=== PATIENT | female | born 2000 | race Asian ===

== ENCOUNTER 2025-04-16 13:23 | Outpatient (AMB) | payer MEDICAID, SELFPAY ==
[2025-04-16 13:43] VITALS: BP 127/89; PULSE 67; RESP 17; TEMP 36.2; O2SAT 98; BMI 27.5
--- NOTE | 2025-04-16 13:43 | AMB.OBINITIA ---
Vital Signs 04/16/25 13:43 Height 1.63 m Height Method Stated Weight 72.802 kg Weight Measurement Method Standing Scale BMI 27.5 BP 127/89 H Blood Pressure Source Automatic Cuff Blood Pressure Location Left Upper Arm Position Sitting Respiration 17 Pulse 67 Pulse Source Monitor Temp 97.2 F Temp Source Oral Pulse Oximetry (%) 98 Oxygen Delivery Method Room Air Allergies/Home Meds Allergies & Medications Allergies No Known Allergies Allergy (Verified 04/16/25 13:44) Medication Reconciliation No Known Home Medications 04/16/25 [History Confirmed 04/16/25] Intake Visit Data Collection New Patient or Established: Established Patient (seen at [facility] [place] Reason for Visit:: OBC Seen by Clinical Staff ONLY (RN/MA): No Cable Hooker Required: No Do You Feel Safe at Home: Yes Authorities Contacted: N/A PCP or OBGYN visit in last 3 months: No Hx Now: Yes Are you currently on any form of Control: No Pain Present Currently: No Pain Scale Used: Stinson-Williamson/Numerical Pain scale:: 0 Smoking Status Smoking Status: Never smoker Questionnaires Covid-19 Vaccine Questionnaire Has patient been vacinated for Covid-19 Have you been vacinated for Covid-19: Yes PHQ-9 PHQ-2 Over the last 2 weeks, how often have you been bothered by any of the following problems? 1. Little interest or pleasure in doing things: not at all 2. Feeling down, depressed, or hopeless: not at all Total score: 0 PHQ-9 3. Trouble falling or staying asleep, or sleeping too much: Not at all 4. Feeling tired or having little energy: Not at all 5. Poor appetite or overeating: Not at all 6. Feeling bad about yourself - or that you are a failure or have let yourself or your family down: Not at all 7. Trouble concentrating on things, such as reading the newspaper or watching television: Not at all 8. Moving or speaking so slowly that other people could have noticed? - Or the opposite - being so fidgety or restless that you have been moving around a lot more than usual: not at all 9. Thoughts that you would be better off or of hurting yourself in some way: Not at all Total score: 0 If you checked off any problems, how difficult have these problems made it for you to do your work, take care of things at home, or get along with other people?: not difficult at all Source: Developed by Drs. Blake Hartley, Kerry Haney, Solis Cosby and colleagues, with an educational pedro from [employer]. Depression screen completed yes Social History Living Situation History Marital Status: Lives With: Family Housing: Apartment Tobacco History Smoking Status: Never smoker Second Hand Smoke Exposure: No Alcohol History Alcohol Intake: Never Domestic Abuse History Do You Feel Safe at Home: Yes History of Present Illness HPI Narrative 25 yo for OBI. LMP 02/15/25. EDC 11/25/25. happy with + preg test. partner here with patient. no c/o N/V. c/o spotting light last week. no bleeding now. Denies existing PMH. denies social habit,no surgery. 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 Medical History Past Medical History: No Hx Neurological Disorders, No Hx Cardiac Disorders, No Hx Cancer, No Hx Blood Disorders, No Hx Gastrointestinal Disorders, No Hx Renal Disease, No Hx Diabetes Mellitus Type 1 and No Hx Diabetes Mellitus Type 2 OB Initial Visit Menstrual History Menstrual reliability: definite Flow: normal Menstrual regularity: regular Monthly: Yes Age at menarche: 10 On control pills at conception: No OB History : 2 Para: 1 Hx # Pregnancies: 0 Hx Total # of Abortions (Spontaneous & Elective): 0 # of Living Children: 1 Delivery History 1st : date: 03/07/19 sex: male Gestational age at delivery (weeks): 38 Delivery type: vaginal weight (lbs): 2721.554 g History of depression before or after : No Infection History & Risk Evaluation History of STDs: none HIV risk evaluation: low risk Hepatitis B risk evaluation: low risk Patient or partner has history of Genital Herpes: No Varicella/chicken pox status: immunized Genetic Screening & History Genetic Screening/Teratology Counseling - Includes patient, baby's father, or anyone in either family with: 1. Patient's age 35 years or older as of estimated date of delivery: No 2. Thalassemia (Albanian, Mohawk, Mediterranean, or Background); MCV less than 80: No 3. Neural Tube Defect (Meningomyelocele, Spina Bifida, or Anencephaly): No 4. Congenital Heart Defect: No 5. Down Syndrome: No 6. Jr-Sachs (Ashkenazi Orthodoxy, Cajun, Tunisian Micronesian): No 7. Gaby Disease (Ashkenazi Orthodoxy): No 8. Familial Dysautonomia (Ashkenazi Orthodoxy): No 9. Sickle Cell Disease or Trait (): No 10. Hemophilia or other blood disorders: No 11. Muscular Dystrophy: No 12. Cystic Fibrosis: No 13. Holland's Chorea: No 14. Mental Retardation/Autism: No 15. Other inherited genetic or chromosomal disorder: No 16. Maternal Metabolic Disorder (EG,TYPE 1 Diabetes, PKU): No 17. Patient or baby's father had a child with defects not listed above: No 18. Recurrent loss or a stillbirth: No 19. Medications (including supplements, vitamins, herbs or otc drugs)/illicit/recreational drugs/alcohol since last menstrual period: No 20. Any other: No Infection History 1. Live with someone with TB or exposed to TB: No 2. Rash or viral illness since last menstrual period: No 3. Hepatitis B,C: No Other (see comments) Source: [employer] Review of Systems Review of Systems Systems Reviewed: All systems reviewed, normal except as documented Exam General Limitations: no limitations General Appearance: alert, in no apparent distress, comfortable, cooperative, healthy appearing, well developed and well groomed Head Head exam: atraumatic, normocephalic and normal inspection Chest Chest inspection: Present normal inspection and symmetric chest wall rise Resp Respiratory exam: Present normal lung sounds bilaterally Card Cardiovascular exam: Present regular rate, normal rhythm and normal heart sounds Abdominal Abdominal exam: Present soft and normal bowel sounds Psych Psychiatric exam: Present normal affect and normal mood Office Procedures OB Clinic LOC & Office Proc's Nursing/Assessment Patient Status: Established Patient OB Clinic Nursing Assessment: Medication Reconciliation, Update PMH in EMR and Vital Signs OB Clinic Coordination of Care: Complex Care and Chronic Disease 1-5, Education Complex Pt/Fam, Consent,records obtained, informed consent, Lab and Imaging orders and Staff clarify orders Special Needs: Heart tones Established Patient Charge Established Patient Point Assignment: 135 Established Patient Point Charge: EP Level 4 (120-155) Assessment & Plan Diagnosis / Problem List (1) Encounter for supervision of normal in multigravida in first trimester: Status: Acute Plan discuss ER precaution and SAB precaution, continue PNV, increase fluids. ob sono for viability. OB panel and HCG today, rest. rtc 4 week obc and NIPT
== END 2025-04-16 14:20 | disposition home or self-care (01) ==
LOC: HODSOBC 13:23
PROVIDERS: Supervising Provider Obstetrics & Gynecology; Visit Provider Advanced Practice Midwife
DX: Z34.81 Encounter for supervision of other normal pregnancy, first trimester (principal); Z3A.00 Weeks of gestation of pregnancy not specified
CPT/HCPCS: 99214; G0463

== ENCOUNTER 2025-05-08 15:19 | Outpatient (AMB) | payer MEDICAID, SELFPAY ==
[2025-05-08 15:35] VITALS: BP 106/64; PULSE 79; RESP 18; TEMP 36.2; O2SAT 98; BMI 27.5
--- NOTE | 2025-05-08 15:35 | OBCLNT_ITS ---
Vital Signs 05/08/25 15:35 Height 1.63 m Height Method Stated Weight 73.085 kg Weight Measurement Method Standing Scale BMI 27.5 BP 106/64 Blood Pressure Source Automatic Cuff Blood Pressure Location Left Upper Arm Position Sitting Respiration 18 Pulse 79 Pulse Source Monitor Temp 97.2 F Temp Source Oral Pulse Oximetry (%) 98 Oxygen Delivery Method Room Air Allergies/Home Meds Allergies & Medications Allergies No Known Allergies Allergy (Verified 05/08/25 15:37) Medication Reconciliation No Known Home Medications 04/16/25 [History Confirmed 05/08/25] Intake Visit Data Collection New Patient or Established: Established Patient (seen at [facility] within 3 years) Reason for Visit:: OBC Seen by Clinical Staff ONLY (RN/MA): No Seo Coordinator Required: No Do You Feel Safe at Home: Yes Authorities Contacted: N/A PCP or OBGYN visit in last 3 months: Yes Date of Last PCP or OBGYN visit: 04/16/25 Hx Now: No Pain Present Currently: No Pain Scale Used: Stinson-Williamson/Numerical Pain scale:: 0 Smoking Status Smoking Status: Never smoker Questionnaires Covid-19 Vaccine Questionnaire Has patient been vacinated for Covid-19 Have you been vacinated for Covid-19: Yes PHQ-9 PHQ-2 Over the last 2 weeks, how often have you been bothered by any of the following problems? 1. Little interest or pleasure in doing things: not at all 2. Feeling down, depressed, or hopeless: not at all Total score: 0 PHQ-9 3. Trouble falling or staying asleep, or sleeping too much: Not at all 4. Feeling tired or having little energy: Not at all 5. Poor appetite or overeating: Not at all 6. Feeling bad about yourself - or that you are a failure or have let yourself or your family down: Not at all 7. Trouble concentrating on things, such as reading the newspaper or watching television: Not at all 8. Moving or speaking so slowly that other people could have noticed? - Or the opposite - being so fidgety or restless that you have been moving around a lot more than usual: not at all 9. Thoughts that you would be better off or of hurting yourself in some way: Not at all Total score: 0 If you checked off any problems, how difficult have these problems made it for you to do your work, take care of things at home, or get along with other people?: not difficult at all Source: Developed by Drs. Blake Hartley, Kerry Haney, Solis Cosby and colleagues, with an educational pedro from [employer]. 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 no 1st trimester complaints/discomfort. happy. spotted last week, light. denies bleeding now. OB panel today, continue PNV, schedule ob sono for viability, HCG today. discuss sab precaution ad ER precaution, hydrate. RTC 4 week 05/08/25 -?-?-?-?-?-?-?-?-?-?-?-?- 11w 5d 73.085 kg 106/64 absent unknown 12 145 absent No ob complaints. 2022:LEEP for abnormal pap. patient need pap pp, denioes sab complaints, no n/v discuss sab precaution, NIPT and carrier today, sched m anatomy scan. RTC 4 week obc KINZA Calculator Estimated Delivery Date Method Current WG Current Estimate 11/22/25 LMP (Certain) 11w 5d Notes Visit Date: 05/08/25 Last Updated by: Nanette Hernandez CNM 25 yo 2p1. lmp 02/15/25. EDC 11/22/25, O+,abs-, rpr;;nr, rub imm, hbsag-, hiv-,HC-, gc/ct-, /plt:287. [place]- Office Procedures OB Clinic LOC & Office Proc's Nursing/Assessment Patient Status: Established Patient OB Clinic Nursing Assessment: Medication Reconciliation, Update PMH in EMR and Vital Signs OB Clinic Coordination of Care: Education Complex Pt/Fam, Consent,records obtained, informed consent, Lab and Imaging orders, Results/Orders obtained and Staff clarify orders Special Needs: Heart tones Established Patient Charge Established Patient Point Assignment: 115 Established Patient Point Charge: EP Level 3 (80-115) Assessment & Plan Diagnosis / Problem List (1) Encounter for supervision of normal in multigravida in first trimester: Status: Acute Plan NIPT,carrier today, discuss sab precaution. sched mfm appointment for anatomy scan. rtc 4 week ob Additional Plan Follow Up: 4 Weeks (obc)
== END 2025-05-08 16:13 | disposition home or self-care (01) ==
LOC: HODSOBC 15:19
PROVIDERS: Supervising Provider Advanced Practice Midwife; Visit Provider Advanced Practice Midwife
DX: Z34.81 Encounter for supervision of other normal pregnancy, first trimester (principal); Z3A.11 11 weeks gestation of pregnancy
CPT/HCPCS: 99213; G0463

== ENCOUNTER 2025-07-24 10:32 | Outpatient (AMB) | payer MEDICAID, SELFPAY ==
[2025-07-24 10:38] VITALS: BP 107/62; PULSE 66; RESP 14; TEMP 36.6; O2SAT 98; BMI 27.5
--- NOTE | 2025-07-24 10:38 | OBCLNT_ITS ---
Vital Signs 07/24/25 10:38 Height 1.63 m Height Method Stated Weight 73.142 kg Weight Measurement Method Standing Scale BMI 27.5 BP 107/62 Blood Pressure Source Automatic Cuff Blood Pressure Location Left Upper Arm Position Sitting Respiration 14 Pulse 66 Pulse Source Monitor Temp 97.8 F Temp Source Oral Pulse Oximetry (%) 98 Oxygen Delivery Method Room Air Allergies/Home Meds Allergies & Medications Allergies No Known Allergies Allergy (Verified 07/24/25 10:39) Medication Reconciliation No Known Home Medications 04/16/25 [History Confirmed 07/24/25] Intake Visit Data Collection New Patient or Established: Established Patient (seen at [facility] within 3 years) Reason for Visit:: CARE Seen by Clinical Staff ONLY (RN/MA): No 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 1. Little interest or pleasure in doing things: not at all 2. Feeling down, depressed, or hopeless: not at all Total score: 0 PHQ-9 3. Trouble falling or staying asleep, or sleeping too much: Not at all 4. Feeling tired or having little energy: Not at all 5. Poor appetite or overeating: Not at all 6. Feeling bad about yourself - or that you are a failure or have let yourself or your family down: Not at all 7. Trouble concentrating on things, such as reading the newspaper or watching television: Not at all 8. Moving or speaking so slowly that other people could have noticed? - Or the opposite - being so fidgety or restless that you have been moving around a lot more than usual: not at all 9. Thoughts that you would be better off or of hurting yourself in some way: Not at all Total score: 0 Source: Developed by Kerry StevensonW. Lyndon, Solis Cosby and colleagues, with an educational pedro from [employer]. 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 no 1st trimester complaints/discomfort. happy. spotted last week, light. denies bleeding now. OB panel today, continue PNV, schedule ob sono for viability, HCG today. discuss sab precaution ad ER precaution, hydrate. RTC 4 week 05/08/25 -?-?-?-?-?-?-?-?-?-?-?-?- 9w 5d 73.085 kg 106/64 absent unknown 12 145 absent No ob complaints. 2022:LEEP for abnormal pap. patient need pap pp, denioes sab complaints, no n/v discuss sab precaution, NIPT and carrier today, sched mfm anatomy scan. RTC 4 week obc 07/24/25 -?-?-?-?-?-?-?-?-?-?-?-?- 20w 5d 73.142 kg 107/62 absent unknown 20 130 active No complaints of labor. Denies bleeding. Denies leaking. Reports movement. Complains of cramping and low pelvic area at work. 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 Discussed dates. Corrected EDC to December 06, 2025. NIPT today. Patient has follow-up MFM in about 4 to 6 weeks. Return in 4 weeks OB check KINZA Calculator Estimated Delivery Date Method Current WG Current Estimate 12/06/25 Ultrasound #1 20w 5d Other Estimates 11/22/25 LMP (Certain) 22w 5d Notes Visit Date: 07/24/25 Last Updated by: Nanette Hernandez CNM wrong Dates. 1st sono: 07/04/25: IUP: 17w6. EDC: 12/06/25. MOON normal, CEDC: 12/06/25 Visit Date: 05/08/25 Last Updated by: Nanette Hernandez CNM 25 yo 2p1. lmp 02/15/25. EDC 11/22/25, O+,abs-, rpr;;nr, rub imm, hbsag-, hiv-,HC-, gc/ct-, /plt:287. [place]- Office Procedures OB Clinic LOC & Office Proc's Nursing/Assessment Patient Status: Established Patient OB Clinic Nursing Assessment: Medication Reconciliation, Update PMH in EMR and Vital Signs OB Clinic Coordination of Care: Complex Care and Chronic Disease 1-5, Consent,records obtained, informed consent, Education Simp Pt/Fam, 1 Ins Authorization, Lab and Imaging orders, Results/Orders obtained and Staff clarify orders Special Needs: Heart tones Established Patient Charge Established Patient Point Assignment: 150 Established Patient Point Charge: EP Level 4 (120-155) Assessment & Plan Diagnosis / Problem List (1) Encounter for supervision of high risk in second trimester, antepartum: Status: Acute Plan Discussed dates. Change EDC to December 06, 2025. NIPT today. Discussed SAB precautions. Disability in 4 weeks Additional Plan Follow Up: 4 Weeks (obc)
== END 2025-07-24 10:55 | disposition home or self-care (01) ==
LOC: HODSOBC 10:32
PROVIDERS: Supervising Provider Advanced Practice Midwife; Visit Provider Advanced Practice Midwife
DX: O09.892 Supervision of other high risk pregnancies, second trimester (principal); O26.842 Uterine size-date discrepancy, second trimester; Z3A.20 20 weeks gestation of pregnancy
CPT/HCPCS: 99214; G0463

== ENCOUNTER 2025-08-20 14:39 | Outpatient (AMB) | payer MEDICAID, SELFPAY ==
[2025-08-20 14:47] VITALS: BP 112/69; PULSE 78; RESP 16; TEMP 36.5; O2SAT 98; BMI 28.2
--- NOTE | 2025-08-20 14:47 | OBCLNT_ITS ---
Vital Signs 08/20/25 14:47 Height 1.63 m Height Method Stated Weight 74.899 kg Weight Measurement Method Standing Scale BMI 28.2 BP 112/69 Blood Pressure Source Automatic Cuff Blood Pressure Location Left Upper Arm Position Sitting Respiration 16 Pulse 78 Pulse Source Monitor Temp 97.7 F Temp Source Oral Pulse Oximetry (%) 98 Oxygen Delivery Method Room Air Allergies/Home Meds Allergies & Medications Allergies No Known Allergies Allergy (Verified 08/20/25 14:48) Medication Reconciliation No Known Home Medications 04/16/25 [History Confirmed 08/20/25] Intake Visit Data Collection New Patient or Established: Established Patient (seen at [facility] within 3 years) Reason for Visit:: CARE Seen by Clinical Staff ONLY (RN/MA): No Wheel Lacer And Truer Required: No Do You Feel Safe at Home: Yes Authorities Contacted: N/A PCP or OBGYN visit in last 3 months: Yes Hx Now: Yes Are you currently on any form of Control: No Pain Present Currently: No Pain Scale Used: Stinson-Williamson/Numerical Pain scale:: 0 Smoking Status Smoking Status: Never smoker Questionnaires Covid-19 Vaccine Questionnaire Has patient been vacinated for Covid-19 Have you been vacinated for Covid-19: Yes PHQ-9 PHQ-2 Over the last 2 weeks, how often have you been bothered by any of the following problems? 1. Little interest or pleasure in doing things: not at all 2. Feeling down, depressed, or hopeless: not at all Total score: 0 PHQ-9 3. Trouble falling or staying asleep, or sleeping too much: Not at all 4. Feeling tired or having little energy: Not at all 5. Poor appetite or overeating: Not at all 6. Feeling bad about yourself - or that you are a failure or have let yourself or your family down: Not at all 7. Trouble concentrating on things, such as reading the newspaper or watching television: Not at all 8. Moving or speaking so slowly that other people could have noticed? - Or the opposite - being so fidgety or restless that you have been moving around a lot more than usual: not at all 9. Thoughts that you would be better off or of hurting yourself in some way: Not at all Total score: 0 Source: Developed by Drs. Blake Hartley, Kerry Haney, Solis Cosby and colleagues, with an educational pedro from [employer]. 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 no 1st trimester complaints/discomfort. happy. spotted last week, light. denies bleeding now. OB panel today, continue PNV, schedule ob sono for viability, HCG today. discuss sab precaution ad ER precaution, hydrate. RTC 4 week 05/08/25 -?-?-?-?-?-?-?-?-?-?-?-?- 9w 5d 73.085 kg 106/64 absent unknown 12 145 absent No ob complaints. 2022:LEEP for abnormal pap. patient need pap pp, denioes sab complaints, no n/v discuss sab precaution, NIPT and carrier today, sched mfm anatomy scan. RTC 4 week obc 07/24/25 -?-?-?-?-?-?-?-?-?-?-?-?- 20w 5d 73.142 kg 107/62 absent unknown 20 130 active No complaints of labor. Denies bleeding. Denies leaking. Reports movement. Complains of cramping and low pelvic area at work. 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 Discussed dates. Corrected EDC to December 06, 2025. NIPT today. Patient has follow-up MFM in about 4 to 6 weeks. 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 Difficult to work with her abdomen being so big. Denies leaking, denies bleeding. Patient complains of increased cramps at work. Reports good movement Disability will start August 24. last day worked will be 08/23/25. Third trimester labs. Patient has a follow-up ultrasound in 4 weeks. Discussed labor precautions. Increase fluids. Return in 4 weeks for OB check KINZA Calculator Estimated Delivery Date Method Current WG Current Estimate 12/06/25 Ultrasound #1 24w 4d Other Estimates 11/22/25 LMP (Certain) 26w 4d Notes Visit Date: 08/20/25 Last Updated by: Nanette Hernandez CNM NIPT-/male, SMA/CF- Visit Date: 07/24/25 Last Updated by: Nanette Hernandez CNM wrong Dates. 1st sono: 07/04/25: IUP: 17w6. EDC: 12/06/25. MOON normal, CEDC: 12/06/25 Visit Date: 05/08/25 Last Updated by: Nanette Hernandez CNM 25 yo 2p1. lmp 02/15/25. EDC 11/22/25, O+,abs-, rpr;;nr, rub imm, hbsag-, hiv-,HC-, gc/ct-, /plt:287. [place]- Office Procedures OBC Clinic LOC & Office Proc's Nursing/Assessment Patient Status: Established Patient OB Clinic Nursing Assessment: Medication Reconciliation, Update PMH in EMR and Vital Signs OB Clinic Coordination of Care: Complex Care and Chronic Disease 1-5, Consent,records obtained, informed consent, Education Simp Pt/Fam, Lab and Imaging orders, Results/Orders obtained and Staff clarify orders Special Needs: Heart tones Established Patient Charge Established Patient Point Assignment: 135 Established Patient Point Charge: EP Level 4 (120-155) Assessment & Plan Diagnosis / Problem List (1) Encounter for supervision of high risk in second trimester, antepartum: Status: Acute Plan Disability. Last date of work will be August 23. And disability will start August 24. Third trimester labs ordered. Discussed comfort measures for labor and danger signs and symptoms. Increase fluids. And return in 4 weeks OBC Additional Plan Follow Up: 4 Weeks (obc)
== END 2025-08-20 15:04 | disposition home or self-care (01) ==
LOC: HODSOBC 14:39
PROVIDERS: Supervising Provider Advanced Practice Midwife; Visit Provider Advanced Practice Midwife
DX: O09.92 Supervision of high risk pregnancy, unspecified, second trimester (principal); Z3A.24 24 weeks gestation of pregnancy
CPT/HCPCS: 99214; G0463

== ENCOUNTER 2025-09-17 11:33 | Outpatient (AMB) | payer MEDICAID, SELFPAY ==
[2025-09-17 11:40] VITALS: BP 100/62; PULSE 73; RESP 18; TEMP 36.5; O2SAT 98; BMI 29.2
--- NOTE | 2025-09-17 11:40 | OBCLNT_ITS ---
Vital Signs 09/17/25 11:40 Height 1.63 m Height Method Stated Weight 77.678 kg Weight Measurement Method Standing Scale BMI 29.2 BP 100/62 Blood Pressure Source Automatic Cuff Blood Pressure Location Right Upper Arm Position Sitting Respiration 18 Pulse 73 Pulse Source Monitor Temp 97.7 F Temp Source Temporal Artery Scan Pulse Oximetry (%) 98 Oxygen Delivery Method Room Air Allergies/Home Meds Allergies & Medications Allergies No Known Allergies Allergy (Verified 09/17/25 11:41) Medication Reconciliation No Known Home Medications 04/16/25 [History Confirmed 09/17/25] Intake Visit Data Collection New Patient or Established: Established Patient (seen at [facility] within 3 years) Reason for Visit:: OBC Seen by Clinical Staff ONLY (RN/MA): No Inbound Ingredient Logistics Specialist Required: No Do You Feel Safe at Home: Yes Authorities Contacted: N/A PCP or OBGYN visit in last 3 months: Yes Date of Last PCP or OBGYN visit: 08/20/25 Hx Now: Yes Are you currently on any form of Control: No Pain Present Currently: No Pain Scale Used: Stinson-Williamson/Numerical Pain scale:: 0 Smoking Status Smoking Status: Never smoker Immunizations Flu Vaccine in the Last 12 Months: No Flu Vaccine Exclusion Criteria: No Exclusion Criteria Questionnaires Covid-19 Vaccine Questionnaire Has patient been vacinated for Covid-19 Have you been vacinated for Covid-19: No PHQ-9 PHQ-2 Over the last 2 weeks, how often have you been bothered by any of the following problems? 1. Little interest or pleasure in doing things: not at all 2. Feeling down, depressed, or hopeless: not at all Total score: 0 PHQ-9 3. Trouble falling or staying asleep, or sleeping too much: Not at all 4. Feeling tired or having little energy: Not at all 5. Poor appetite or overeating: Not at all 6. Feeling bad about yourself - or that you are a failure or have let yourself or your family down: Not at all 7. Trouble concentrating on things, such as reading the newspaper or watching television: Not at all 8. Moving or speaking so slowly that other people could have noticed? - Or the opposite - being so fidgety or restless that you have been moving around a lot more than usual: not at all 9. Thoughts that you would be better off or of hurting yourself in some way: Not at all Total score: 0 If you checked off any problems, how difficult have these problems made it for you to do your work, take care of things at home, or get along with other people?: not difficult at all Source: Developed by Drs. Blake Hartley, Kerry Haney, Solis Cosby and colleagues, with an educational pedro from [employer]. 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 no 1st trimester complaints/discomfort. happy. spotted last week, light. denies bleeding now. OB panel today, continue PNV, schedule ob sono for viability, HCG today. shauna barbour sab precaution ad ER precaution, hydrate. RTC 4 week 05/08/25 -?-?-?-?-?-?-?-?-?-?-?-?- 9w 5d 73.085 kg 106/64 absent unknown 12 145 absent No ob complaints. 2022:LEEP for abnormal pap. patient need pap pp, denioes sab complaints, no n/v discuss sab precaution, NIPT and carrier today, sched mfm anatomy scan. RTC 4 week obc 07/24/25 -?-?-?-?-?-?-?-?-?-?-?-?- 20w 5d 73.142 kg 107/62 absent unknown 20 130 active No complaints of labor. Denies bleeding. Denies leaking. Reports movement. Complains of cramping and low pelvic area at work. 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 Discussed dates. Corrected EDC to December 06, 2025. NIPT today. Patient has follow-up MFM in about 4 to 6 weeks. 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 Difficult to work with her abdomen being so big. Denies leaking, denies bleeding. Patient complains of increased cramps at work. Reports good movement Disability will start August 24. last day worked will be 08/23/25. Third trimester labs. Patient has a follow-up ultrasound in 4 weeks. Discussed labor precautions. Increase fluids. Return in 4 weeks for OB check 09/17/25 -?-?-?-?-?-?-?-?-?-?-?-?- 28w 4d 77.678 kg 100/62 absent unknown 28 135 active No OB complaints. Denies contractions, leaking, bleeding. Follow-up MFM October 11 Keep appointment with maternal- medicine for October 11. Disability next visit. Return in 3 weeks OB check. Discussed labor precautions. And discussed weight gain and decrease sugary foods KINZA Calculator Estimated Delivery Date Method Current WG Current Estimate 12/06/25 Ultrasound #1 28w 4d Other Estimates 11/22/25 LMP (Certain) 30w 4d 12/06/25 Manual 28w 4d final kinza; 12/06 Notes Visit Date: 09/17/25 Last Updated by: Nanette Hernandez CNM 08/26: 3rd tri lab wnl Visit Date: 08/20/25 Last Updated by: Nanette Hernandez CNM NIPT-/male, SMA/CF- Visit Date: 07/24/25 Last Updated by: Nanette Hernandez CNM wrong Dates. 1st sono: 07/04/25: IUP: 17w6. EDC: 12/06/25. MOON normal, CEDC: 12/06/25 Visit Date: 05/08/25 Last Updated by: Nanette Hernandez CNM 25 yo 2p1. lmp 02/15/25. EDC 11/22/25, O+,abs-, rpr;;nr, rub imm, hbsag-, hiv-,HC-, gc/ct-, /plt:287. [place]- Office Procedures OBC Clinic LOC & Office Proc's Nursing/Assessment Patient Status: Established Patient OB Clinic Nursing Assessment: Medication Reconciliation, Update PMH in EMR and Vital Signs OB Clinic Coordination of Care: Complex Care and Chronic Disease 1-5, Education Complex Pt/Fam, Consent,records obtained, informed consent, Lab and Imaging orders, Results/Orders obtained and Staff clarify orders Special Needs: Heart tones Established Patient Charge Established Patient Point Assignment: 140 Established Patient Point Charge: EP Level 4 (120-155) Assessment & Plan Diagnosis / Problem List (1) Encounter for supervision of high risk in third trimester, antepartum: Status: Acute Plan Disability next visit. Discussed labor precautions. Discussed diet decrease weight gain and increased sugary foods to be avoided. Maternal- medicine ultrasound October 11 return in 3 weeks or Additional Plan Follow Up: 3 Weeks (obc)
== END 2025-09-17 11:50 | disposition home or self-care (01) ==
LOC: HODSOBC 11:33
PROVIDERS: Supervising Provider Advanced Practice Midwife; Visit Provider Advanced Practice Midwife
DX: O09.93 Supervision of high risk pregnancy, unspecified, third trimester (principal); Z3A.28 28 weeks gestation of pregnancy
CPT/HCPCS: 99214; G0463

== ENCOUNTER 2025-10-08 14:51 | Outpatient (AMB) | payer MEDICAID, SELFPAY ==
[2025-10-08 15:00] VITALS: BP 107/69; PULSE 83; RESP 18; TEMP 36.4; O2SAT 98
--- NOTE | 2025-10-08 15:00 | AMB.OBPNC ---
Vital Signs 10/08/25 15:00 Height 1.63 m Height Method Stated Weight 79.889 kg Weight Measurement Method Standing Scale BMI 30.0 BP 107/69 Blood Pressure Source Automatic Cuff Blood Pressure Location Right Upper Arm Position Sitting Respiration 18 Pulse 83 Pulse Source Monitor Temp 97.5 F Temp Source Temporal Artery Scan Pulse Oximetry (%) 98 Oxygen Delivery Method Room Air Allergies/Home Meds Allergies & Medications Allergies No Known Allergies Allergy (Verified 10/08/25 15:02) Medication Reconciliation No Known Home Medications 04/16/25 [History Confirmed 10/08/25] Immunizations Immunizations Flu Vaccine in the Last 12 Months: Yes Date of most recent flu vaccination: 10/08/25 Flu Vaccine Exclusion Criteria: Already Received Care OB Visit Log OB Flowsheet Initial Weight: Not Recorded Date <del>?</del> EGA Weight BP Alb Glu CTX Pres Fundal ht FHR Mov Dilation Station Effacement Hx Notes Visit Note 04/16/25 <del>?</del> 6w 4d 72.802 kg 127/89 8 25 yo for OBI. no 1st trimester complaints/discomfort. happy. spotted last week, light. denies bleeding now. OB panel today, continue PNV, schedule ob sono for viability, HCG today. discuss sab precaution ad ER precaution, hydrate. RTC 4 week 05/08/25 <del>?</del> 9w 5d 73.085 kg 106/64 absent unknown 12 145 absent No ob complaints. 2022:LEEP for abnormal pap. patient need pap pp, denioes sab complaints, no n/v discuss sab precaution, NIPT and carrier today, sched mfm anatomy scan. RTC 4 week obc 07/24/25 <del>?</del> 20w 5d 73.142 kg 107/62 absent unknown 20 130 active No complaints of labor. Denies bleeding. Denies leaking. Reports movement. Complains of cramping and low pelvic area at work. 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 Discussed dates. Corrected EDC to December 06, 2025. NIPT today. Patient has follow-up MFM in about 4 to 6 weeks. 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 Difficult to work with her abdomen being so big. Denies leaking, denies bleeding. Patient complains of increased cramps at work. Reports good movement Disability will start August 24. last day worked will be 08/23/25. Third trimester labs. Patient has a follow-up ultrasound in 4 weeks. Discussed labor precautions. Increase fluids. Return in 4 weeks for OB check 09/17/25 <del>?</del> 28w 4d 77.678 kg 100/62 absent unknown 28 135 active No OB complaints. Denies contractions, leaking, bleeding. Follow-up MFM October 11 Keep appointment with maternal- medicine for October 11. Disability next visit. Return in 3 weeks OB check. Discussed labor precautions. And discussed weight gain and decrease sugary foods 10/08/25 <del>?</del> 31w 4d 79.889 kg 107/69 absent unknown 30 135 active Fetus active. Denies bleeding, leaking, contractions. Will no complaints. Return in 2 weeks OB check MFM sono 10/10, TDAP and flu today, discuss ptl precaution, fkc bid, continue pnv. rtc 2 week obc KINZA Calculator Estimated Delivery Date Method Current WG Current Estimate 12/06/25 Ultrasound #1 31w 4d Other Estimates 11/22/25 LMP (Certain) 33w 4d 12/06/25 Manual 31w 4d final kinza; 12/06/25 Notes Visit Date: 09/17/25 Last Updated by: Nanette Hernandez CNM 08/26: 3rd tri lab wnl Visit Date: 08/20/25 Last Updated by: Nanette Hernandez CNM NIPT-/male, SMA/CF- Visit Date: 07/24/25 Last Updated by: Nanette Gabriel Mary, CNM wrong Dates. 1st sono: 07/04/25: IUP: 17w6. EDC: 12/06/25. MOON normal, CEDC: 12/06/25 Visit Date: 05/08/25 Last Updated by: Nanette Hernandez CNM 25 yo 2p1. lmp 02/15/25. EDC 11/22/25, O+,abs-, rpr;;nr, rub imm, hbsag-, hiv-,HC-, gc/ct-, /plt:287. [place]- Office Procedures OBC Clinic LOC & Office Proc's Nursing/Assessment Patient Status: Established Patient OB Clinic Nursing Assessment: Medication Reconciliation, Update PMH in EMR and Vital Signs OB Clinic Coordination of Care: Complex Care and Chronic Disease 1-5, Education Complex Pt/Fam, Consent,records obtained, informed consent, Lab and Imaging orders, Results/Orders obtained and Staff clarify orders Special Needs: Heart tones Established Patient Charge Established Patient Point Assignment: 140 Established Patient Point Charge: EP Level 4 (120-155) Injection/Vaccine Admin SQ Im Injection: Yes Immunizations flu vac ts (6mos up)-PF 45 mcg(15mcg x3)/0.5 mL IM syringe Performing Provider: Nanette Hernandez CNM Performing Location: [facility] Administered by: Brooke Castaneda MA on 10/08/25 15:27 Dose Route Admin Location Dispensed Lot Number Expiration Date Package [facility] [place] [employer]ining Supervisor 0.5 mL IM Left Deltoid 0.5 mL [id number] 05/20/26 95169-702-08 [id number] [employer] VIS Given Date VIS Provided VIS Publication Date 10/08/25 Single Vaccine 24 Eligibility Eligibility Date Funding Source Public Non-VFC diphth,pertus(acell),tetanus 2.5 Lf unit-8 mcg-5 Lf/0.5mL IM syringe Performing Provider: Nanette Hernandez CNM Performing Location: [facility] Administered by: Brooke Castaneda MA on 10/08/25 15:27 Dose Route Admin Location Dispensed Lot Number Expiration Date Package [facility] [place] [employer] Refining Supervisor 0.5 mL IM Left Deltoid 0.5 mL [id number] 05/02/28 86538-570-28 [id number] [employer] VIS Given Date VIS Provided VIS Publication Date 10/08/25 Single Vaccine 24 Eligibility Eligibility Date Funding Source [facility] Non-[facility] Assessment & Plan Diagnosis / Problem List (1) Encounter for supervision of high risk in third trimester, antepartum: Status: Acute Plan Discussed labor precautions. Kick count twice a day. Continue prenatals. Tdap and flu vaccine today. Patient has an MFM follow-up appointment on October 10 Additional Plan Follow Up: 2 Weeks (obc)
== END 2025-10-08 15:16 | disposition home or self-care (01) ==
LOC: HODSOBC 14:51
PROVIDERS: Supervising Provider Advanced Practice Midwife; Visit Provider Advanced Practice Midwife
DX: O09.93 Supervision of high risk pregnancy, unspecified, third trimester (principal); Z3A.31 31 weeks gestation of pregnancy; Z23 Encounter for immunization
CPT/HCPCS: 90471; 90686; 90715; 96372; 99214; G0463; J9060

== ENCOUNTER 2025-10-23 13:44 | Outpatient (AMB) | payer MEDICAID, SELFPAY ==
[2025-10-23 14:01] VITALS: BP 100/60; PULSE 90; RESP 18; TEMP 36.2; O2SAT 98; BMI 30.2
--- NOTE | 2025-10-23 14:01 | OBCLNT_ITS ---
Vital Signs 10/23/25 14:01 Height 1.63 m Height Method Stated Weight 80.399 kg Weight Measurement Method Standing Scale BMI 30.2 BP 100/60 Blood Pressure Source Automatic Cuff Blood Pressure Location Left Upper Arm Position Standing Respiration 18 Pulse 90 Pulse Source Monitor Temp 97.2 F Temp Source Oral Pulse Oximetry (%) 98 Oxygen Delivery Method Room Air Allergies/Home Meds Allergies & Medications Allergies No Known Allergies Allergy (Verified 10/23/25 14:01) Medication Reconciliation No Known Home Medications 04/16/25 [History Confirmed 10/23/25] Immunizations Immunizations Flu Vaccine in the Last 12 Months: No Flu Vaccine Exclusion Criteria: No Exclusion Criteria Care OB Visit Log OB Flowsheet Initial Weight: Not Recorded Date -?-?-?-?-?-?-?-?-?-?-?-?- EGA Weight BP Alb Glu CTX Pres Fundal ht FHR Mov Dilation Station Effacement Hx Notes Visit Note 04/16/25 -?-?-?-?-?-?-?-?-?-?-?-?- 6w 4d 72.802 kg 127/89 8 25 yo for OBI. no 1st trimester complaints/discomfort. happy. spotted last week, light. denies bleeding now. OB panel today, continue PNV, schedule ob sono for viability, HCG today. discuss sab precaution ad ER precaution, hydrate. RTC 4 week 05/08/25 -?-?-?-?-?-?-?-?-?-?-?-?- 9w 5d 73.085 kg 106/64 absent unknown 12 145 absent No ob complaints. 2022:LEEP for abnormal pap. patient need pap pp, denioes sab complaints, no n/v discuss sab precaution, NIPT and carrier today, sched mfm anatomy scan. RTC 4 week obc 07/24/25 -?-?-?-?-?-?-?-?-?-?-?-?- 20w 5d 73.142 kg 107/62 absent unknown 20 130 active No complaints of labor. Denies bleeding. Denies leaking. Reports movement. Complains of cramping and low pelvic area at work. 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 Discussed dates. Corrected EDC to December 06, 2025. NIPT today. Patient has follow-up MFM in about 4 to 6 weeks. 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 Difficult to work with her abdomen being so big. Denies leaking, denies bleeding. Patient complains of increased cramps at work. Reports good movement Disability will start August 24. last day worked will be 08/23/25. Third trimester labs. Patient has a follow-up ultrasound in 4 weeks. Discussed labor precautions. Increase fluids. Return in 4 weeks for OB check 09/17/25 -?-?-?-?-?-?-?-?-?-?-?-?- 28w 4d 77.678 kg 100/62 absent unknown 28 135 active No OB complaints. Denies contractions, leaking, bleeding. Follow-up MFM October 11 Keep appointment with maternal- medicine for October 11. Disability next visit. Return in 3 weeks OB check. Discussed labor precautions. And discussed weight gain and decrease sugary foods 10/08/25 -?-?-?-?-?-?-?-?-?-?-?-?- 31w 4d 79.889 kg 107/69 absent unknown 30 135 active Fetus active. Denies bleeding, leaking, contractions. Will no complaints. Return in 2 weeks OB check MFM sono 10/10, TDAP and flu today, discuss ptl precaution, fkc bid, continue pnv. rtc 2 week obc 10/23/25 -?-?-?-?-?-?-?-?-?-?-?-?- 33w 5d 80.399 kg 100/60 absent cephalic 33 135 active Follow-up ultrasound November 11. Reports movement. Denies leaking or bleeding. Occasional contraction. Follow-up matern al- medicine ultrasound November 11. Kick count twice a day. Discussed labor precautions. Increase fluids. R eturn in 2 weeks OB to KINZA Calculator Estimated Delivery Date Method Current WG Current Estimate 12/06/25 Ultrasound #1 33w 5d Other Estimates 11/22/25 LMP (Certain) 35w 5d 12/06/25 Ultrasound #2 33w 5d 12/06/25 Manual 33w 5d final kinza; 12/06 Notes Visit Date: 09/17/25 Last Updated by: Nanette Hernandez CNM 10/6: 3rd tri lab wnl Visit Date: 08/20/25 Last Updated by: Nanette Hernandez CNM NIPT-/male, SMA/CF- Visit Date: 07/24/25 Last Updated by: Nanette Hernandez CNM wrong Dates. 1st sono: 07/04/25: IUP: 17w6. EDC: 12/06/25. MOON normal, CEDC: 12/06/25 Visit Date: 05/08/25 Last Updated by: Nanette Hernandez CNM 25 yo 2p1. lmp 02/15/25. EDC 11/22/25, O+,abs-, rpr;;nr, rub imm, hbsag-, hiv-,HC-, gc/ct-, /plt:287. [place]- Office Procedures OBC Clinic LOC & Office Proc's Nursing/Assessment Patient Status: Established Patient OB Clinic Nursing Assessment: Medication Reconciliation, Update PMH in EMR and Vital Signs OB Clinic Coordination of Care: Consent,records obtained, informed consent, Education Simp Pt/Fam, Lab and Imaging orders, Results/Orders obtained and Staff clarify orders Special Needs: Heart tones Established Patient Charge Established Patient Point Assignment: 110 Established Patient Point Charge: EP Level 3 (80-115) Assessment & Plan Diagnosis / Problem List (1) Encounter for supervision of high risk in third trimester, antepartum: Status: Acute Plan Discussed labor precautions. Increase fluids. Kick count twice a day. Follow-up ultrasound November 11. Return in 2 weeks OB check for GBS Additional Plan Follow Up: 2 Weeks (obc)
== END 2025-10-23 14:26 | disposition home or self-care (01) ==
LOC: HODSOBC 13:44
PROVIDERS: Supervising Provider Advanced Practice Midwife; Visit Provider Advanced Practice Midwife
DX: O09.93 Supervision of high risk pregnancy, unspecified, third trimester (principal); Z3A.33 33 weeks gestation of pregnancy
CPT/HCPCS: 99213; G0463

== ENCOUNTER 2025-11-06 13:11 | Outpatient (AMB) | payer MEDICAID, SELFPAY ==
[2025-11-06 13:16] VITALS: BP 113/72; PULSE 92; RESP 18; TEMP 36.2; O2SAT 98; BMI 30.6
--- NOTE | 2025-11-06 13:16 | OBCLNT_ITS ---
Vital Signs 11/06/25 13:16 Height 1.63 m Height Method Stated Weight 81.306 kg Weight Measurement Method Standing Scale BMI 30.6 BP 113/72 Blood Pressure Source Automatic Cuff Blood Pressure Location Left Upper Arm Position Sitting Respiration 18 Pulse 92 Pulse Source Monitor Temp 97.2 F Temp Source Oral Pulse Oximetry (%) 98 Oxygen Delivery Method Room Air Allergies/Home Meds Allergies & Medications Allergies No Known Allergies Allergy (Verified 11/06/25 13:17) Medication Reconciliation No Known Home Medications 04/16/25 [History Confirmed 11/06/25] Immunizations Immunizations Flu Vaccine in the Last 12 Months: No Flu Vaccine Exclusion Criteria: No Exclusion Criteria Care OB Visit Log OB Flowsheet Initial Weight: Not Recorded Date -?-?-?-?-?-?-?-?-?-?-?-?- EGA Weight BP Alb Glu CTX Pres Fundal ht FHR Mov Dilation Station Effacement Hx Notes Visit Note 04/16/25 -?-?-?-?-?-?-?-?-?-?-?-?- 6w 4d 72.802 kg 127/89 8 25 yo for OBI. no 1st trimester complaints/discomfort. happy. spotted last week, light. denies bleeding now. OB panel today, continue PNV, schedule ob sono for viability, HCG today. discuss sab precaution ad ER precaution, hydrate. RTC 4 week 05/08/25 -?-?-?-?-?-?-?-?-?-?-?-?- 9w 5d 73.085 kg 106/64 absent unknown 12 145 absent No ob complaints. 2022:LEEP for abnormal pap. patient need pap pp, denioes sab complaints, no n/v discuss sab precaution, NIPT and carrier today, sched mfm anatomy scan. RTC 4 week obc 07/24/25 -?-?-?-?-?-?-?-?-?-?-?-?- 20w 5d 73.142 kg 107/62 absent unknown 20 130 active No complaints of labor. Denies bleeding. Denies leaking. Reports movement. Complains of cramping and low pelvic area at work. 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 Discussed dates. Corrected EDC to December 06, 2025. NIPT today. Patient has follow-up MFM in about 4 to 6 weeks. 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 Difficult to work with her abdomen being so big. Denies leaking, denies bleeding. Patient complains of increased cramps at work. Reports good movement Disability will start August 24. last day worked will be 08/23/25. Third trimester labs. Patient has a follow-up ultrasound in 4 weeks. Discussed labor precautions. Increase fluids. Return in 4 weeks for OB check 09/17/25 -?-?-?-?-?-?-?-?-?-?-?-?- 28w 4d 77.678 kg 100/62 absent unknown 28 135 active No OB complaints. Denies contractions, leaking, bleeding. Follow-up MFM October 11 Keep appointment with maternal- medicine for October 11. Disability next visit. Return in 3 weeks OB check. Discussed labor precautions. And discussed weight gain and decrease sugary foods 10/08/25 -?-?-?-?-?-?-?-?-?-?-?-?- 31w 4d 79.889 kg 107/69 absent unknown 30 135 active Fetus active. Denies bleeding, leaking, contractions. Will no complaints. Return in 2 weeks OB check MFM sono 10/10, TDAP and flu today, discuss ptl precaution, fkc bid, continue pnv. rtc 2 week obc 10/23/25 -?-?-?-?-?-?-?-?-?-?-?-?- 33w 5d 80.399 kg 100/60 absent cephalic 33 135 active Follow-up ultrasound November 11. Reports movement. Denies leaking or bleeding. Occasional contraction. Follow-up matern al- medicine ultrasound November 11. Kick count twice a day. Discussed labor precautions. Increase fluids. Re turn in 2 weeks OB to 11/06/25 -?-?-?-?-?-?-?-?-?-?-?-?- 35w 5d 81.306 kg 113/72 occasional cephalic 35 135 active Reports good movement. Denies leaking, bleeding, contractions. No OB complaints GBS today. Discussed labor precautions. Kick count twice a day. Discussed ER precautions. Return in a week OB check KINZA Calculator Estimated Delivery Date Method Current WG Current Estimate 12/06/25 Ultrasound #1 35w 5d Other Estimates 11/22/25 LMP (Certain) 37w 5d 12/06/25 Ultrasound #2 35w 5d 12/06/25 Manual 35w 5d final kinza; 12/06 Notes Visit Date: 09/17/25 Last Updated by: Nanette Hernandez CNM 08/26: 3rd tri lab wnl Visit Date: 08/20/25 Last Updated by: Nanette Hernandez CNM NIPT-/male, SMA/CF- Visit Date: 07/24/25 Last Updated by: Nanette Hernandez CNM wrong Dates. 1st sono: 07/04/25: IUP: 17w6. EDC: 12/06/25. MOON normal, CEDC: 12/06/25 Visit Date: 05/08/25 Last Updated by: Nanette Hernandez CNM 25 yo 2p1. lmp 02/15/25. EDC 11/22/25, O+,abs-, rpr;;nr, rub imm, hbsag-, hiv-,HC-, gc/ct-, /plt:287. 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
== END 2025-11-06 13:39 | disposition home or self-care (01) ==
LOC: HODSOBC 13:11
PROVIDERS: Supervising Provider Advanced Practice Midwife; Visit Provider Advanced Practice Midwife
DX: Z34.83 Encounter for supervision of other normal pregnancy, third trimester (principal); Z3A.35 35 weeks gestation of pregnancy
CPT/HCPCS: 99205; 99214; G0463